=== PATIENT | female | born 1960 | race Caucasian/White ===

== ENCOUNTER 2018-06-25 19:16 | Emergency (ER) | payer OTHER ==
--- NOTE | 2018-06-25 20:14 | EDM.PDOC ---
ED HPI GENERAL MEDICAL PROBLEM - General Chief Complaint: Skin Complaint Stated Complaint: POSSIBLE CELLULITIS RT LEG Time Seen by Provider: 06/25/18 20:07 Source of Information: Reports: Patient History Limitations: Reports: No Limitations - History of Present Illness INITIAL COMMENTS - FREE TEXT/NARRATIVE: pt was at the clinic today and when she got home she suddenly noticed that there was redness devloping in her rt leg. She noted that the leg felt hot. She has a past history of recurrent cellulitis. She has not had a fever. She did have sone chills last nite. She has a area where there is a skin opening on her ant rt leg. Onset: Today Duration: Hour(s): Location: Reports: Lower Extremity, Right Associated Symptoms: Reports: No Other Symptoms Right Lower Leg Pain Score (Numeric/FACES): 2 - Related Data Allergies Allergy/AdvReac Type Severity Reaction Status Date / Time No Known Allergies Allergy Verified 06/25/18 19:54 Home Meds: Home Meds Aspirin [Ecotrin] 81 mg PO DAILY 06/25/18 [History] Cholecalciferol (Vitamin D3) [Vitamin D3] 2,000 unit PO DAILY 06/25/18 [History] Liraglutide [Victoza] 3 units SQ DAILY 06/25/18 [History] atorvaSTATin [Lipitor] 40 mg PO DAILY 06/25/18 [History] metFORMIN [Glucophage] 2,000 mg PO DAILY 06/25/18 [History] 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: Endocrine/Metabolic History: Reports: Diabetes, Type II Dermatologic History: Reports: Cellulitis - Infectious Disease History Infectious Disease History: Reports: Chicken Pox, Mumps, Shingles - Past Surgical History HEENT Surgical History: Reports: Tonsillectomy, Other (See Below) Other HEENT Surgeries/Procedures: uvulalectomy GI Surgical History: Reports: Colonoscopy Musculoskeletal Surgical History: Reports: Knee Replacement Social & Family History - Tobacco Use Smoking Status *Q: Never Smoker Second Hand Smoke Exposure: No - Caffeine Use Caffeine Use: Reports: Coffee, Soda - Alcohol Use Days Per Week of Alcohol Use: 3 Number of Drinks Per Day: 3 Total Drinks Per Week: 9 - Recreational Drug Use Recreational Drug Use: No ED ROS GENERAL - Review of Systems Review Of Systems: See Below Constitutional: Reports: No Symptoms HEENT: Reports: No Symptoms Respiratory: Reports: No Symptoms Cardiovascular: Reports: No Symptoms Endocrine: Reports: No Symptoms GI/Abdominal: Reports: No Symptoms : Reports: No Symptoms Musculoskeletal: Reports: Other ( redness in the rt leg. ) Skin: Reports: Erythema, Other ( warm. ) Neurological: Reports: No Symptoms ED EXAM, SKIN/RASH Exam: See Below Text/Narrative:: pt arrived with a very red warm rt lower leg. She has a history orf recurent celluliis. Exam Limited By: No Limitations General Appearance: Alert, Mild Distress Ears: Normal External Exam Nose: Normal Inspection Throat/Mouth: Normal Inspection Head: Atraumatic Neck: Normal Inspection Respiratory/Chest: No Respiratory Distress Cardiovascular: Regular Rate, Rhythm GI/Abdominal: Soft, Non-Tender Extremities: Other ( rt leg is swollen and is red and hot. This has spread rapidly . She was ok this am and now this is involving most of the rt lower leg. She did have some chilling last nite. She has a history of recurrent cellulitis. ) Neurological: Alert, Oriented Course - Vital Signs Last Recorded V/S: Last Vital Signs Temp 37.6 C 06/25/18 20:03 Pulse 98 06/25/18 20:03 Resp 16 06/25/18 20:03 BP 160/69 H 06/25/18 20:03 Pulse Ox 98 06/25/18 20:03 - Orders/Labs/Meds Labs: Laboratory Tests 06/25/18 Range/Units 20:07 WBC 7.3 (4.5-11.0) K/uL RBC 4.71 (3.30-5.50) M/uL Hgb 13.2 (12.0-15.0) g/dL Hct 38.5 (36.0-48.0) % MCV 82 (80-98) fL MCH 28 (27-31) pg MCHC 34 (32-36) % Plt Count 173 (150-400) K/uL Neut % (Auto) 76 H (36-66) % Lymph % (Auto) 16 L (24-44) % [place] % (Auto) 8 H (2-6) % Eos % (Auto) 0 L (2-4) % Baso % (Auto) 0 (0-1) % Meds: Medications Discontinued Medications Generic Name Dose Route Start Last Admin Trade Name Freq PRN Reason Stop Dose Admin Sodium Chloride 1,000 mls @ 999 mls/hr 06/25/18 20:15 06/25/18 20:47 Normal Saline IV 999 mls/hr ASDIRECTED SAW Administration Ceftriaxone Sodium 2 gm/ 50 mls @ 100 mls/hr 06/25/18 20:19 06/25/18 20:42 Sodium Chloride IV 06/25/18 20:48 100 mls/hr ONETIME ONE Administration - Re-Assessments/Exams Free Text/Narrative Re-Assessment/Exam: 06/25/18 20:35 pt was given 2 gm of rocephen. She has a normal wbc. Departure - Departure Time of Disposition: 21:25 Disposition: Home, Self-Care 01 Condition: Fair Clinical Impression: Cellulitis of right leg - Discharge Information Instructions: Cellulitis, Adult, [id number] Referrals: PCP,None [Primary Care Provider] - Forms: ED Department Discharge Care Plan Goals: moist warm packs, keflex 500mg qid for 10 days. If not improving in 2-3 days rtc.
[2018-06-25] MEDS ORDERED: Sodium Chloride 0.9% 1,000 ML IV SCH (20:15)
[2018-06-25] MEDS ORDERED: cefTRIAXone 2 GM in Sodium Chloride 0.9% 50 ML IV ONE (20:19)
== END 2018-06-25 21:26 | disposition home or self-care (01) ==
LOC: JP.ED 19:16
DX: L03.115 Cellulitis of right lower limb (principal); E11.9 Type 2 diabetes mellitus without complications; Z79.82 Long term (current) use of aspirin; Z79.899 Other long term (current) drug therapy
CPT/HCPCS: 36415; 85025; 96361; 96365; 99284; J0696; J7030; J7050

== ENCOUNTER 2020-01-06 17:37 | Emergency (ER) | payer OTHER ==
[2020-01-06] MEDS ORDERED: cefTRIAXone 1 GM, Lidocaine 1% 2.1 ML IM ONE ×2 (18:13)
--- NOTE | 2020-01-06 18:13 | EDM.PDOC ---
ED HPI GENERAL MEDICAL PROBLEM - General Chief Complaint: Skin Complaint Stated Complaint: RASH LEFT LEG Time Seen by Provider: 01/06/20 18:05 Source of Information: Reports: Patient History Limitations: Reports: No Limitations - History of Present Illness INITIAL COMMENTS - FREE TEXT/NARRATIVE: 59-year-old female with a reddened, somewhat tender and warm lower left leg for the past 24 hours. She has a history of lower leg cellulitis in the past that responded to cephalosporins. No fevers or chills, no other complaints at this time. Onset: Gradual Duration: Hour(s): (24 hours) Location: Reports: Lower Extremity, Left Associated Symptoms: Reports: No Other Symptoms Left Leg Pain Score (Numeric/FACES): 3 - Related Data Allergies Allergy/AdvReac Type Severity Reaction Status Date / Time No Known Allergies Allergy Verified 01/06/20 17:54 Home Meds: Home Meds Aspirin [Ecotrin] 81 mg PO DAILY 06/25/18 [History] Cholecalciferol (Vitamin D3) [Vitamin D3] 2,000 unit PO DAILY 06/25/18 [History] Liraglutide [Victoza] 3 units SQ DAILY 06/25/18 [History] atorvaSTATin [Lipitor] 40 mg PO DAILY 06/25/18 [History] metFORMIN [Glucophage] 2,000 mg PO DAILY 06/25/18 [History] Cyanocobalamin (Vitamin B-12) [Vitamin B-12] 1 tab PO DAILY 01/06/20 [History] 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: Endocrine/Metabolic History: Reports: Diabetes, Type II Dermatologic History: Reports: Cellulitis - Infectious Disease History Infectious Disease History: Reports: Chicken Pox, Mumps, Shingles - Past Surgical History HEENT Surgical History: Reports: Tonsillectomy, Other (See Below) Other HEENT Surgeries/Procedures: uvulalectomy GI Surgical History: Reports: Colonoscopy Musculoskeletal Surgical History: Reports: Knee Replacement Social & Family History - Tobacco Use Smoking Status *Q: Never Smoker - Caffeine Use Caffeine Use: Reports: Coffee, Soda Other Caffeine Use: 2 cups coffee, one soda - Recreational Drug Use Recreational Drug Use: No ED ROS GENERAL - Review of Systems Review Of Systems: See Below Constitutional: Denies: Fever, Chills HEENT: Reports: No Symptoms Respiratory: Reports: No Symptoms GI/Abdominal: Reports: No Symptoms. Denies: Nausea, Vomiting Skin: Reports: Erythema Neurological: Reports: No Symptoms ED EXAM, SKIN/RASH Exam: See Below Exam Limited By: No Limitations General Appearance: Alert, No Apparent Distress Respiratory/Chest: No Respiratory Distress Extremities: Other (Lower extremities are symmetric in size, no deformity. The left lower leg distal to the knee on the anterior cast down around the lateral ankle has erythema, warmth, and slight tenderness to palpation.) Neurological: Alert, Oriented Psychiatric: Normal Affect, Normal Mood Skin: Other (See above) Course - Vital Signs Last Recorded V/S: Last Vital Signs Temp 96.9 F 01/06/20 17:53 Pulse 103 H 01/06/20 17:53 Resp 16 01/06/20 17:53 BP 164/74 H 01/06/20 17:53 Pulse Ox 97 01/06/20 17:53 - Orders/Labs/Meds Meds: Medications Discontinued Medications Generic Name Dose Route Start Last Admin Trade Name Freq PRN Reason Stop Dose Admin Ceftriaxone Sodium 1 gm/ 0 gm 01/06/20 18:13 01/06/20 18:32 Lidocaine HCl 2.1 ml IM 01/06/20 18:14 1 inj ONETIME ONE Administration - Re-Assessments/Exams Free Text/Narrative Re-Assessment/Exam: 01/06/20 18:12 This patient is redeveloped cellulitis of the left lower leg. 1 g Rocephin IM was given and she will be placed on cephalexin 500 mg 4 times daily. Return in the next 24 to 48 hours if worsening despite treatment. Departure - Departure Time of Disposition: 18:40 Disposition: Home, Self-Care 01 Condition: Good Clinical Impression: Cellulitis of left lower leg - Discharge Information Instructions: Cellulitis, Adult Referrals: PCP,None [Primary Care Provider] - Forms: ED Department Discharge Care Plan Goals: Take antibiotics as prescribed for at least 7 days. Recheck in 2 to 3 days if not improving satisfactorily, or anytime sooner if worsening such as vomiting the medication or increased erythema, pain or fever. Sepsis Event Note - Evaluation Sepsis Screening Result: No Definite Risk - Focused Exam Vital Signs: Vital Signs Temp Pulse Resp BP Pulse Ox 01/06/20 17:53 96.9 F 103 H 16 164/74 H 97 01/06/20 17:47 96.9 F 103 H 16 164/74 H 97 Date Exam was Performed: 01/06/20 Time Exam was Performed: 19:19
== END 2020-01-06 18:39 | disposition home or self-care (01) ==
LOC: JP.ED 17:37
DX: L03.116 Cellulitis of left lower limb (principal); E11.9 Type 2 diabetes mellitus without complications; Z79.84 Long term (current) use of oral hypoglycemic drugs; Z79.899 Other long term (current) drug therapy; Z79.82 Long term (current) use of aspirin
CPT/HCPCS: 96372; 99283; J0696; J2001

== ENCOUNTER 2022-03-19 10:56 | Emergency (ER) | payer OTHER | END 2022-03-19 13:03 | disposition home or self-care (01) | LOC: JP.ED 10:56 | DX: L03.115 Cellulitis of right lower limb (principal); E11.9 Type 2 diabetes mellitus without complications; Z79.899 Other long term (current) drug therapy; Z79.82 Long term (current) use of aspirin; Z79.84 Long term (current) use of oral hypoglycemic drugs | CPT/HCPCS: 99283 ==